=== PATIENT | male | born 1990 | race Caucasian/White ===

== ENCOUNTER 2017-12-09 15:49 | Emergency (ER) | payer OTHER ==
[~2017-12-09] VITALS: Ht 170.2 cm; Wt 64.2 kg
[2017-12-09 16:06] VITALS: BP 117/79
== END 2017-12-09 16:29 | disposition home or self-care (01) ==
LOC: ED 16:15
DX: F32.9 Major depressive disorder, single episode, unspecified (principal); Z76.0 Encounter for issue of repeat prescription
CPT/HCPCS: 99283

== ENCOUNTER 2020-05-13 05:16 | Emergency (ER) | payer MEDICAID, OTHER ==
[~2020-05-13] VITALS: Ht 172.7 cm; Wt 65.2 kg
--- NOTE | 2020-05-13 05:20 | NUR ---
LATE ENTRY D/T PT CARE: PT REPORTS COMING INTO ED THIS AM D/T CP X4DAYS. STATES HE CAME IN THIS MORNING BECAUSE HE COULDNT SLEEP D/T THE DISCOMFORT, REPORTS IT IS PRIMARILY PRESSURE AND WORSENS WHEN SMOKING, ANXIOUS OR PHYSICAL EXERTION. PT PULSES 2+ BILATERAL, BED IN LOWEST, RAILS ENGAGED, CALL LIGHT ON LAP, PLACED ON SPO2/BP/ECG MONITORING. PT NAD, DENIES ADDITIONAL QUESTIONS OR NEEDS AT THIS TIME. WCTM.
[2020-05-13 06:14] LABS: TROPONIN I < 0.015 ng/mL (0.000-0.045)
--- NOTE | 2020-05-13 06:40 | NUR ---
Note jayden in EDM - 05/13/20 at 0643 by GRETTA PT RESTING ON SEGUNDO FELIZ, NO CHANGE IN CONDITION, VSS, WAITING FOR RAD READ. REPORT TO JARRETT MOYA, PT CARE TRANSFERRED AT THIS TIME.
--- NOTE | 2020-05-13 06:44 | NUR ---
Note jayden in EDM - 05/13/20 at 0646 by GRETTA PT RESTING ON GRACESEGUNDO MONGE, NO CHANGE IN CONDITION, VSS, WAITING FOR RAD READ. REPORT TO OLIVIA MOYA, PT CARE TRANSFERRED AT THIS TIME.
--- NOTE | 2020-05-13 06:46 | NUR ---
PT RESTING ON TRINI, SEGUNDO, NO CHANGE IN CONDITION, VSS, WAITING FOR RAD READ. REPORT TO RAJAN RN, PT CARE TRANSFERRED AT THIS TIME. PREVIOUS NOTES DUE TO SCHEDULING CHANGES.
[2020-05-13 07:24] VITALS: BP 106/64
--- NOTE | 2020-05-13 07:26 | NUR ---
PT REC'VD DISCHARGE INSTRUCTIONS AND EDUCATION. PT HAD NO QUESTIONS.
--- NOTE | 2020-05-13 07:37 | NUR ---
PT AMBULATED TO MO AREA, STEADY GAIT.
== END 2020-05-13 07:37 | disposition home or self-care (01) ==
LOC: ED 06:48
DX: R07.89 Other chest pain (principal); R05 Cough
CPT/HCPCS: 36415; 71045; 84484; 93005; 99285